=== PATIENT | female | born 1965 | race Caucasian/White ===

== ENCOUNTER 2017-05-24 20:20 | Emergency (ER) | payer OTHER ==
[~2017-05-24] VITALS: Ht 170.2 cm; Wt 89.5 kg
[2017-05-24 20:24] VITALS: Ht 170.2 cm; Wt 89.5 kg
[2017-05-24] MEDS ORDERED: SOD CHLORIDE 0.9% 1,000 ML IV STA (21:09)
[2017-05-24 22:06] LABS: BASOPHILS % 0.4 % (0.0-2.0); EOSINOPHILS # 0.1 10^3/ul (0.0-0.5); HEMATOCRIT 37.2 % (37.0-47.0); HEMOGLOBIN 12.8 g/dl (12.0-16.0); LYMPHOCYTES # 3.3 10^3/ul (0.8-2.9); LYMPHOCYTES % 35.4 % (15.0-51.0); MEAN CORPUSCULAR HEMOGLOBIN 30.7 pg (29.0-33.0); MEAN CORPUSCULAR HGB CONC 34.4 g/dl (32.0-37.0); MEAN CORPUSCULAR VOLUME 89.2 fl (82.0-101.0); MEAN PLATELET VOLUME 10.1 fl (7.4-10.4); MONOCYTE # 0.4 10^3/ul (0.3-0.9); MONOCYTES % 4.7 % (0.0-11.0); NEUTROPHIL # 5.4 10^3/ul (1.6-7.5); NEUTROPHILS % 58.3 % (39.0-77.0); PLATELET COUNT 217 10^3/UL (140-415); RED BLOOD COUNT 4.17 10^6/ul (4.20-5.40); RED CELL DISTRIBUTION WIDTH 12.6 % (11.5-14.5); WHITE BLOOD COUNT 9.2 10^3/ul (4.8-10.8)
--- NOTE | 2017-05-24 22:25 | RADRPT ---
PROCEDURE: XR Chest. CLINICAL INDICATION: Chest pain. TECHNIQUE: Single frontal view of the chest was obtained. COMPARISON: None FINDINGS: A metal necklace is noted in the left supraclavicular area. The soft tissues are otherwise unremarka ble. The film is under penetrated limiting bony detail. The posterior left fourth and fifth ribs ar e partially fused to each other. No acute bony fracture is identified. The heart is dextro rotated. The cardiomediastinal silhouette and hilar structures are normal. The pulmonary vasculature is norm al. There is a left-sided aorta. The lungs are clear. The costophrenic angles are normal. IMPRESSION: 1. Dextrorotation of the heart. 2. There is no evidence of active cardiopulmonary disease. 3. The left posterior fourth and fifth ribs are fused. RPTAT:AAJJ Physician Alexa Date Time Electronically viewed and signed by Physician Alexa on 05/24/2017 22:24 TURNER/
[2017-05-24 22:27] LABS: ANION GAP 14 (8-16); BLOOD UREA NITROGEN 12 mg/dl (7-20); CALCIUM 9.7 mg/dl (8.4-10.2); CARBON DIOXIDE 24 mmol/L (21-31); CHLORIDE 108 mmol/L (97-110); CREATININE 0.88 mg/dl (0.44-1.00); GLUCOSE 100 mg/dl (70-220); POTASSIUM 3.8 mmol/L (3.5-5.1); SODIUM 142 mmol/L (135-144)
[2017-05-24 22:44] LABS: TROPONIN-I < 0.012 ng/ml (0.00-0.12)
[2017-05-24] MEDS ORDERED: OXYM15SP34 NASAL (22:56)
--- NOTE | 2017-05-24 22:56 | ERD ---
ER Documentation Chief Complaint Date/Time DATE: 05/24/17 TIME: 22:54 Chief Complaint BIB RA SOB, CHEST TIGHTNESS, FLU SX X 4 WEEKS, PANIC ATTACK HPI This is a 52-year-old female presents to the emergency room for evaluation of shortness of breath, nasal congestion, dry cough, flulike symptoms and multiple other complaints over the past 4 weeks. The patient states that she has been to [place] and is seen her doctor was prescribed her Provera and Flonase. The patient came to the ER today for a second opinion ROS All systems reviewed and are negative except as per history of present illness. Allergies Allergies: Coded Allergies: No Known Allergy (Unverified , 05/24/17) PMhx/Soc History of Surgery: Yes (hysterectomy) Anesthesia Reaction: No Hx Neurological Disorder: No Hx Respiratory Disorders: Yes (asthma) Hx Cardiac Disorders: No Hx Psychiatric Problems: No Hx Miscellaneous Medical Probl: Yes (gerd) Hx Alcohol Use: No Hx Substance Use: No Hx Tobacco Use: Yes Smoking Status: Current every day smoker Physical Exam Vitals Vital Signs Date Time Temp Pulse Resp B/P Pulse Ox O2 Delivery O2 Flow Rate FiO2 05/24/17 20:24 98.7 100 20 160/99 100 Physical Exam INITIAL VITAL SIGNS: Reviewed by me GENERAL: The patient is well developed and appropriate for usual state of health in no apparent distress HEENT: Bilateral nasal congestion, pupils equal, round, and reactive to light. EOMI. There is no scleral icterus. NECK: C-spine is soft and supple, there is no meningismus. There is no cervical lymphadenopathy. LUNGS: Clear to auscultation bilaterally. There are no rales, wheezes or rhonchi. HEART: Regular rate and rhythm, no murmurs, clicks, rubs or gallops. ABDOMEN: Soft, non-tender, non-distended. There are bowel sounds in all four quadrants. No rebound or guarding. EXTREMITIES: There is no peripheral cyanosis or edema. No focal swelling or erythema. NEUROLOGICAL: The patient moves all four extremities with 5/5 strength. Cranial nerves II - XII are intact. Normal gait. Alert and oriented SKIN: There is no apparent rash or petechiae. HEME/LYMPHATIC: There is no evidence of excessive bruising or lymphedema. PSYCHIATRIC: The patient does not appear anxious or depressed. Result Diagram: 05/24/17212905/24/172129 Results 24 hrs Laboratory Tests Test 05/24/17 21:30 White Blood Count 9.210^3/ul Red Blood Count 4.1710^6/ul Hemoglobin 12.8g/dl Hematocrit 37.2% Mean Corpuscular Volume 89.2fl Mean Corpuscular Hemoglobin 30.7pg Mean Corpuscular Hemoglobin Concent 34.4g/dl Red Cell Distribution Width 12.6% Platelet Count 97547^3/UL Mean Platelet Volume 10.1fl Neutrophils % 58.3% Lymphocytes % 35.4% Monocytes % 4.7% Eosinophils % 1.0% Basophils % 0.4% Nucleated Red Blood Cells % 0.0/100WBC Neutrophils # 5.410^3/ul Lymphocytes # 3.310^3/ul Monocytes # 0.410^3/ul Eosinophils # 0.110^3/ul Basophils # 0.010^3/ul Nucleated Red Blood Cells # 0.010^3/ul Sodium Level 142mmol/L Potassium Level 3.8mmol/L Chloride Level 108mmol/L Carbon Dioxide Level 24mmol/L Anion Gap 14 Blood Urea Nitrogen 12mg/dl Creatinine 0.88mg/dl Glucose Level 100mg/dl Calcium Level 9.7mg/dl Troponin I < 0.012ng/ml Current Medications Medications (Trade) Dose Ordered Sig/Javon Route PRN Reason Start Time Stop Time Status Last Admin Dose Admin Sodium Chloride (NS) 1,000 ml @ 1,000 mls/hr Q1H STAT IV 05/24/17 21:09 05/24/17 22:08 DC Procedures/MDM EKG: Rate/Rhythm: [Normal Sinus Rhythm] QRS, ST, T-waves: [No changes consistent w/ acute ischemia] Impression: [No evidence of ischemia or arrhythmia] Chest X-ray 1V Interpreted by me: Soft Tissue: No acute abnormalities Bones: No acute abnormalities Mediastinum/Cardiac Silhouette/Lungs: [No acute abnormalities] This 52-year-old presents to the ER for evaluation of multiple symptoms. When I evaluated patient she had nasal congestion, she is also complaining of dry cough and shortness of breath. She was not hypoxic and was satting 100% on room air. Patient underwent a cardiac workup including EKG which is nonischemic and a troponin which was negative. Chest x-ray is clear but does show dextrocardia. The patient will be discharged at this time with a prescription for Afrin Departure Diagnosis: Primary Impression: Upper respiratory infection Additional Impression: Nasal congestion Condition: Stable MINI CULVER DO May 24, 2017 22:56
[2017-05-24 23:07] VITALS: BP 113/81; PULSE 66; RESP 18
== END 2017-05-24 23:02 | disposition home or self-care (01) ==
LOC: E/R 20:20
DX: J06.9 Acute upper respiratory infection, unspecified (principal); J45.909 Unspecified asthma, uncomplicated; F17.210 Nicotine dependence, cigarettes, uncomplicated
CPT/HCPCS: 71010; 80048; 84484; 85025; 93005; 99285; J7030